=== PATIENT | male | born 1995 | race Caucasian/White ===

== ENCOUNTER 2023-11-28 23:44 | Emergency (ER) | payer BC, OTHER ==
--- OUTSIDE RECORDS SUMMARY | 2023-11-28 23:49 | XMS REPORT | Continuity of Care Document ---
Author Name Unknown Address [address] [facility] [address] [place] [address] [facility] Address [address] [facility] [address] [place] [address] Care Team Providers Care Hide Handler Name Role Phone NETTA JOSE Primary Care Physician Unavailab CONNIE Roque Attending Clinician Unava DEVON Galvez Attending Clinician Unavailable Doctor Unassigned, [facility] Attending Clinician U VAL Young Attending Clinician Unavailable Ze Huff MD Attending Clinician [phone] Val Hand MD Attending Clinician [phone] Da DEAL, Sendroberto K.[facility]. Attending Clinician + [phone] KENNEDY RIVERA Attending Clinician Unavailable Kennedy Rivera DO Attending Clinician [phone] HEATHER DAVIS K.H. Attending Clinician UnavailMitch Stockton Attending Clinician [phone] MITCH BRUNNER Attending Clinician Unavailabl e Unknown, Attending Attending Clinician Unavailab OSCAR Cheng Attending Clinician Unavailable Travis Barajas PTA Attending Clinician UnavailOscar Ocampo MD Attending Clinician [phone] Nancy Barajas PTA Attending Clinician Unavail able Hola Oliveira MD Attending Clinician [phone] Ghislaine Griffin PT Attending Clinician Un available Sanjuanita Buckner PTA Attending Clinician Unavail able Brenda Solomon PT Attending Clinician Unavailab HOLA Tinajero Attending Clinician UnavailMILADIS Lobo Attending Clinician Unavailable Miladis Rodarte PA-C Attending Clinician YUNIEL LY Attending Clinician Unavailable Yuniel Ly MD Attending Clinician [phone] Only, Pcp [address] Test Attending Clinician Lorena Lazara Landis MD Attending Clinician LAZARA JEONG Attending Clinician Unavailable RENAE FORMAN Attending Clinician Unavailable CONNIE PHILLIPS Admitting Clinician Unava ilable KENNEDY RIVERA Admitting Clinician Unavailable HEATHER DAVISHTony Admitting Clinician Unavaila RENAE Zamarripa Admitting Clinician Unavailable Payers Payer Name Policy Type Policy Number Effective Date Expirati on Date Source [facility] [id number] 2019 00:00:00 [facility] [id number] 00:00:00 Problems Condition Name Condition Details Condition Category Status Onset Date Resolution Date Last Treatment Date Treating Clinician Comments Source Dysphagia, oropharyng eal phase Dysphagia, oropharyng eal phase Disease Active 11-10 00:00: 00 [facility] Abnormal barium swallow Abnormal barium swallow Disease Active 11-10 00:00: 00 [facility] Allergies, Adverse Reactions, Alerts Allergy Name Allergy Type Status Severity Reaction(s) Onset Date Inactive Date Treating Clinician Comments Source NO KNOWN ALLERGIE S Drug Class Active [facility] Social History Social Habit Start Date Stop Date Quantity Comments Source [facility] Alcohol Std Drinks [facility] History SDOH Alcohol Binge [facility] History SDOH Alcohol Comment [facility] Alcohol intake 2023-11-10 00:00:00 2023-11-10 00:00:00 Lifetime non-drinker (finding) [facility] Exposure to SARS-CoV-2 (event) 2023-03-01 00:00:00 2023-03-11 13:06:00 Not sure [facility] Tobacco use and exposure 2022-12-31 00:00:00 2022-12-31 00:00:00 Smokeless tobacco non-user [facility] History of Social function 2020-01-30 00:00:00 2020-01-30 00:00:00 [facility] History SDOH Alcohol Frequency 2020-01-29 00:00:00 2020-01-29 00:00:00 1 [facility] Sex Assigned At 1995 00:00:00 1995 00:00:00 [facility] Smoking Status Start Date Stop Date Source Never smoked tobacco [facility] Medications Ordered Medication Name Filled Medication Name Start Date Stop Date Current Medication? Ordering Clinician Indication Dosage Frequency Signature (SIG) Comments Components Source pantoprazol e 40 mg EC tablet 11-10 00:00: 00 Yes [id number] 40mg Take 1 tablet by mouth in the morning. [facility] pantoprazol e 40 mg EC tablet 11-10 00:00: 00 Yes [id number] 40mg Take 1 tablet by mouth in the morning. [facility] pantoprazol e 40 mg EC tablet 11-10 00:00: 00 Yes [id number] 40mg Take 1 tablet by mouth in the morning. [facility] pantoprazol e 40 mg EC tablet 11-10 00:00: 00 Yes [id number] 40mg Take 1 tablet by mouth in the morning. [facility] pantoprazol e 40 mg EC tablet 11-10 00:00: 00 Yes [id number] 40mg Take 1 tablet by mouth in the morning. [facility] barium sulfate (E-Z-HD BARIUM) 98 % oral suspension 50 mL 2022-10 16:30: 00 09-19 16:26 :00 No [id number] 50mL 50 mL, Oral, ONCE, 1 dose, On Tue09/19/23 at 1030, Routine [facility] barium sulfate (LIQUID E-Z PAQUE) 60 % (w/v) oral suspension 70 mL 2022-10 16:30: 00 09-19 16:26 :00 No [id number] 70mL 70 mL, Oral, ONCE, 1 dose, On Tue09/19/23 at 1030, Routine [facility] sulfur hexafluorid e microsphr (LUMASON) injection 5 mL 2022-10 21:45: 00 09-12 21:35 :00 No [id number] 5mL 5 mL, Intravenou s, ONCE, 1 dose, On Tue09/12/23 at 1600, Routine
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 [facility] ondansetron 4 mg disintegrat ing tablet 2022-10 00:00: 00 Yes [id number] 4mg Take 1 tablet by mouth every 8 (eight) hours as needed for Nausea and Vomiting (N/V). [facility] ondansetron 4 mg disintegrat ing tablet 2022-10 00:00: 00 Yes [id number] 4mg Take 1 tablet by mouth every 8 (eight) hours as needed for Nausea and Vomiting (N/V). [facility] ondansetron 4 mg disintegrat ing tablet 2022-10 00:00: 00 Yes [id number] 4mg Take 1 tablet by mouth every 8 (eight) hours as needed for Nausea and Vomiting (N/V). [facility] ondansetron 4 mg disintegrat ing tablet 2022-10 00:00: 00 Yes [id number] 4mg Take 1 tablet by mouth every 8 (eight) hours as needed for Nausea and Vomiting (N/V). [facility] ondansetron 4 mg disintegrat ing tablet 2022-10 00:00: 00 Yes [id number] 4mg Take 1 tablet by mouth every 8 (eight) hours as needed for Nausea and Vomiting (N/V). [facility] ondansetron 4 mg disintegrat ing tablet 2022-10 00:00: 00 Yes [id number] 4mg Take 1 tablet by mouth every 8 (eight) hours as needed for Nausea and Vomiting (N/V). [facility] ondansetron 4 mg disintegrat ing tablet 2022-10 0 00:00: 00 Yes [id number] 4mg Take 1 tablet by mouth every 8 (eight) hours as needed for Nausea and Vomiting (N/V). [facility] ondansetron 4 mg disintegrat ing tablet 2022-10 0 00:00: 00 Yes [id number] 4mg Take 1 tablet by mouth every 8 (eight) hours as needed for Nausea and Vomiting (N/V). [facility] ondansetron 4 mg disintegrat ing tablet 2022-10 0 00:00: 00 Yes [id number] 4mg Take 1 tablet by mouth every 8 (eight) hours as needed for Nausea and Vomiting (N/V). [facility] ondansetron 4 mg disintegrat ing tablet 2022-10 00:00: 00 Yes [id number] 4mg Take 1 tablet by mouth every 8 (eight) hours as needed for Nausea and Vomiting (N/V). [facility] ondansetron 4 mg disintegrat ing tablet 2022-10 00:00: 00 Yes [id number] 4mg Take 1 tablet by mouth every 8 (eight) hours as needed for Nausea and Vomiting (N/V). [facility] ondansetron 4 mg disintegrat ing tablet 2022-10 0 00:00: 00 Yes [id number] 4mg Take 1 tablet by mouth every 8 (eight) hours as needed for Nausea and Vomiting (N/V). [facility] ondansetron 4 mg disintegrat ing tablet 2022-10 0 00:00: 00 Yes [id number] 4mg Take 1 tablet by mouth every 8 (eight) hours as needed for Nausea and Vomiting (N/V). [facility] ondansetron 4 mg disintegrat ing tablet 2022-10 0 00:00: 00 Yes [id number] 4mg Take 1 tablet by mouth every 8 (eight) hours as needed for Nausea and Vomiting (N/V). [facility] ondansetron 4 mg disintegrat ing tablet 2022-10 00:00: 00 Yes [id number] 4mg Take 1 tablet by mouth every 8 (eight) hours as needed for Nausea and Vomiting (N/V). [facility] cholecalcif aarti, vitamin D3, (VITAMIN D3) 25 mcg (1,000 unit) tablet 2022-10 12:40: 05 Yes 1000U Take 1 tablet by mouth in the morning. [facility] cholecalcif aarti, vitamin D3, (VITAMIN D3) 25 mcg (1,000 unit) tablet 2022-10 12:40: 05 Yes 1000U Take 1 tablet by mouth in the morning. [facility] cholecalcif aarti, vitamin D3, (VITAMIN D3) 25 mcg (1,000 unit) tablet 2022-10 12:40: 05 Yes 1000U Take 1 tablet by mouth in the morning. [facility] cholecalcif aarti, vitamin D3, (VITAMIN D3) 25 mcg (1,000 unit) tablet 2022-10 12:40: 05 Yes 1000U Take 1 tablet by mouth in the morning. [facility] cholecalcif aarti, vitamin D3, (VITAMIN D3) 25 mcg (1,000 unit) tablet 2022-10 12:40: 05 Yes 1000U Take 1 tablet by mouth in the morning. [facility] cholecalcif aarti, vitamin D3, (VITAMIN D3) 25 mcg (1,000 unit) tablet 2022-10 12:40: 05 Yes 1000U Take 1 tablet by mouth in the morning. [facility] cholecalcif aarti, vitamin D3, (VITAMIN D3) 25 mcg (1,000 unit) tablet 2022-10 12:40: 05 Yes 1000U Take 1 tablet by mouth in the morning. [facility] cholecalcif aarti, vitamin D3, (VITAMIN D3) 25 mcg (1,000 unit) tablet 2022-10 12:40: 05 Yes 1000U Take 1 tablet by mouth in the morning. [facility] cholecalcif aarti, vitamin D3, (VITAMIN D3) 25 mcg (1,000 unit) tablet 2022-10 12:40: 05 Yes 1000U Take 1 tablet by mouth in the morning. [facility] cholecalcif aarti, vitamin D3, (VITAMIN D3) 25 mcg (1,000 unit) tablet 2022-10 12:40: 05 Yes 1000U Take 1 tablet by mouth in the morning. [facility] cholecalcif aarti, vitamin D3, (VITAMIN D3) 25 mcg (1,000 unit) tablet 2022-10 12:40: 05 Yes 1000U Take 1 tablet by mouth in the morning. [facility] cholecalcif aarti, vitamin D3, (VITAMIN D3) 25 mcg (1,000 unit) tablet 2022-10 12:40: 05 Yes 1000U Take 1 tablet by mouth in the morning. [facility] cholecalcif aarti, vitamin D3, (VITAMIN D3) 25 mcg (1,000 unit) tablet 2022-10 12:40: 05 Yes 1000U Take 1 tablet by mouth in the morning. [facility] cholecalcif aarti, vitamin D3, (VITAMIN D3) 25 mcg (1,000 unit) tablet 2022-10 12:40: 05 Yes 1000U Take 1 tablet by mouth in the morning. [facility] cholecalcif aarti, vitamin D3, (VITAMIN D3) 25 mcg (1,000 unit) tablet 2022-10 12:40: 05 Yes 1000U Take 1 tablet by mouth in the morning. [facility] cholecalcif aarti, vitamin D3, (VITAMIN D3) 25 mcg (1,000 unit) tablet 2022-10 12:40: 05 Yes 1000U Take 1 tablet by mouth in the morning. [facility] cholecalcif aarti, vitamin D3, (VITAMIN D3) 25 mcg (1,000 unit) tablet 2022-10 12:40: 05 Yes 1000U Take 1 tablet by mouth in the morning. [facility] cholecalcif aarti, vitamin D3, (VITAMIN D3) 25 mcg (1,000 unit) tablet 2022-10 12:40: 05 Yes 1000U Take 1 tablet by mouth in the morning. [facility] lamoTRIgine (LAMICTAL) 150 mg tablet 2022-10 0-24 12:39: 43 Yes 150mg Take 1 tablet by mouth every morning. [facility] lamoTRIgine 200 mg tablet 2022-10 0-24 12:39: 43 Yes 200mg Take 1 tablet by mouth in the morning. [facility] lamoTRIgine (LAMICTAL) 150 mg tablet 2022-10 0-24 12:39: 43 Yes 150mg Take 1 tablet by mouth every morning. [facility] lamoTRIgine 200 mg tablet 2022-10 0-24 12:39: 43 Yes 200mg Take 1 tablet by mouth in the morning. [facility] lamoTRIgine (LAMICTAL) 150 mg tablet 2022-10 0-24 12:39: 43 Yes 150mg Take 1 tablet by mouth every morning. [facility] lamoTRIgine 200 mg tablet 2022-10 024 12:39: 43 Yes 200mg Take 1 tablet by mouth in the morning. [facility] lamoTRIgine (LAMICTAL) 150 mg tablet 2022-10 024 12:39: 43 Yes 150mg Take 1 tablet by mouth every morning. [facility] lamoTRIgine 200 mg tablet 2022-10 024 12:39: 43 Yes 200mg Take 1 tablet by mouth in the morning. [facility] lamoTRIgine (LAMICTAL) 150 mg tablet 2022-10 024 12:39: 43 Yes 150mg Take 1 tablet by mouth every morning. [facility] lamoTRIgine 200 mg tablet 2022-10 024 12:39: 43 Yes 200mg Take 1 tablet by mouth in the morning. [facility] lamoTRIgine (LAMICTAL) 150 mg tablet 2022-10 024 12:39: 43 Yes 150mg Take 1 tablet by mouth every morning. [facility] lamoTRIgine 200 mg tablet 2022-10 0-24 12:39: 43 Yes 200mg Take 1 tablet by mouth in the morning. [facility] lamoTRIgine (LAMICTAL) 150 mg tablet 2022-10 0-24 12:39: 43 Yes 150mg Take 1 tablet by mouth every morning. [facility] lamoTRIgine 200 mg tablet 2022-10 024 12:39: 43 Yes 200mg Take 1 tablet by mouth in the morning. [facility] lamoTRIgine (LAMICTAL) 150 mg tablet 2022-10 024 12:39: 43 Yes 150mg Take 1 tablet by mouth every morning. [facility] lamoTRIgine 200 mg tablet 2022-10 024 12:39: 43 Yes 200mg Take 1 tablet by mouth in the morning. [facility] lamoTRIgine (LAMICTAL) 150 mg tablet 2022-10 024 12:39: 43 Yes 150mg Take 1 tablet by mouth every morning. [facility] lamoTRIgine 200 mg tablet 2022-10 024 12:39: 43 Yes 200mg Take 1 tablet by mouth in the morning. [facility] lamoTRIgine (LAMICTAL) 150 mg tablet 2022-10 024 12:39: 43 Yes 150mg Take 1 tablet by mouth every morning. [facility] lamoTRIgine 200 mg tablet 2022-10 024 12:39: 43 Yes 200mg Take 1 tablet by mouth in the morning. [facility] lamoTRIgine (LAMICTAL) 150 mg tablet 2022-10 024 12:39: 43 Yes 150mg Take 1 tablet by mouth every morning. [facility] lamoTRIgine 200 mg tablet 2022-10 024 12:39: 43 Yes 200mg Take 1 tablet by mouth in the morning. [facility] lamoTRIgine (LAMICTAL) 150 mg tablet 2022-10 024 12:39: 43 Yes 150mg Take 1 tablet by mouth every morning. [facility] lamoTRIgine 200 mg tablet 2022-10 024 12:39: 43 Yes 200mg Take 1 tablet by mouth in the morning. [facility] lamoTRIgine (LAMICTAL) 150 mg tablet 2022-10 024 12:39: 43 Yes 150mg Take 1 tablet by mouth every morning. [facility] lamoTRIgine 200 mg tablet 2022-10 024 12:39: 43 Yes 200mg Take 1 tablet by mouth in the morning. [facility] lamoTRIgine (LAMICTAL) 150 mg tablet 2022-10 024 12:39: 43 Yes 150mg Take 1 tablet by mouth every morning. [facility] lamoTRIgine 200 mg tablet 2022-10 024 12:39: 43 Yes 200mg Take 1 tablet by mouth in the morning. [facility] lamoTRIgine (LAMICTAL) 150 mg tablet 2022-10 024 12:39: 43 Yes 150mg Take 1 tablet by mouth every morning. [facility] lamoTRIgine 200 mg tablet 2022-10 0 12:39: 43 Yes 200mg Take 1 tablet by mouth in the morning. [facility] lamoTRIgine (LAMICTAL) 150 mg tablet 2022-10 0 12:39: 43 Yes 150mg Take 1 tablet by mouth every morning. [facility] lamoTRIgine 200 mg tablet 2022-10 024 12:39: 43 Yes 200mg Take 1 tablet by mouth in the morning. [facility] lamoTRIgine (LAMICTAL) 150 mg tablet 2022-10 024 12:39: 43 Yes 150mg Take 1 tablet by mouth every morning. [facility] lamoTRIgine 200 mg tablet 2022-10 024 12:39: 43 Yes 200mg Take 1 tablet by mouth in the morning. [facility] lamoTRIgine (LAMICTAL) 150 mg tablet 2022-10 024 12:39: 43 Yes 150mg Take 1 tablet by mouth every morning. [facility] lamoTRIgine 200 mg tablet 2022-10 024 12:39: 43 Yes 200mg Take 1 tablet by mouth in the morning. [facility] levothyroxi ne 50 mcg tablet 4-20 19:12: 48 Yes 50ug Take 1 tablet by mouth every morning. [facility] lamoTRIgine 100 mg tablet 2023-0 4-20 19:12: 48 Yes 250mg Take 2.5 tablets by mouth in the morning and 2.5 tablets in the evening. [facility] levothyroxi ne 50 mcg tablet 3-0 4-20 19:12: 48 Yes 50ug Take 1 tablet by mouth every morning. [facility] lamoTRIgine 100 mg tablet 2023-0 4-20 19:12: 48 Yes 250mg Take 2.5 tablets by mouth in the morning and 2.5 tablets in the evening. [facility] levothyroxi ne 50 mcg tablet 3-0 4-20 19:12: 48 Yes 50ug Take 1 tablet by mouth every morning. [facility] lamoTRIgine 100 mg tablet 3-0 4-20 19:12: 48 Yes 250mg Take 2.5 tablets by mouth in the morning and 2.5 tablets in the evening. [facility] levothyroxi ne 50 mcg tablet 3-0 -20 19:12: 48 Yes 50ug Take 1 tablet by mouth every morning. [facility] lamoTRIgine 100 mg tablet 3-0 4-20 19:12: 48 Yes 250mg Take 2.5 tablets by mouth in the morning and 2.5 tablets in the evening. [facility] levothyroxi ne 50 mcg tablet 3-0 4-20 19:12: 48 Yes 50ug Take 1 tablet by mouth every morning. [facility] lamoTRIgine 100 mg tablet 3-0 4-20 19:12: 48 Yes 250mg Take 2.5 tablets by mouth in the morning and 2.5 tablets in the evening. [facility] levothyroxi ne 50 mcg tablet 3-0 4-20 19:12: 48 Yes 50ug Take 1 tablet by mouth every morning. [facility] lamoTRIgine 100 mg tablet 3-0 4-20 19:12: 48 Yes 250mg Take 2.5 tablets by mouth in the morning and 2.5 tablets in the evening. [facility] levothyroxi ne 50 mcg tablet 3-0 4-20 19:12: 48 Yes 50ug Take 1 tablet by mouth every morning. [facility] lamoTRIgine 100 mg tablet 3-0 4-20 19:12: 48 Yes 250mg Take 2.5 tablets by mouth in the morning and 2.5 tablets in the evening. [facility] levothyroxi ne 50 mcg tablet 3-0 4-20 19:12: 48 Yes 50ug Take 1 tablet by mouth every morning. [facility] lamoTRIgine 100 mg tablet 3-0 4-20 19:12: 48 Yes 250mg Take 2.5 tablets by mouth in the morning and 2.5 tablets in the evening. [facility] levothyroxi ne 50 mcg tablet 3-0 4-20 19:12: 48 Yes 50ug Take 1 tablet by mouth every morning. [facility] lamoTRIgine 100 mg tablet 3-0 4-20 19:12: 48 Yes 250mg Take 2.5 tablets by mouth in the morning and 2.5 tablets in the evening. [facility] levothyroxi ne 50 mcg tablet 3-0 -20 19:12: 48 Yes 50ug Take 1 tablet by mouth every morning. [facility] lamoTRIgine 100 mg tablet 3-0 4-20 19:12: 48 Yes 250mg Take 2.5 tablets by mouth in the morning and 2.5 tablets in the evening. [facility] levothyroxi ne 50 mcg tablet 3-0 -20 19:12: 48 Yes 50ug Take 1 tablet by mouth every morning. [facility] lamoTRIgine 100 mg tablet 3-0 -20 19:12: 48 Yes 250mg Take 2.5 tablets by mouth in the morning and 2.5 tablets in the evening. [facility] levothyroxi ne 50 mcg tablet 3-0 4-20 19:12: 48 Yes 50ug Take 1 tablet by mouth every morning. [facility] lamoTRIgine 100 mg tablet 2023-0 4-20 19:12: 48 Yes 250mg Take 2.5 tablets by mouth in the morning and 2.5 tablets in the evening. [facility] levothyroxi ne 50 mcg tablet 2023-0 4-20 19:12: 48 Yes 50ug Take 1 tablet by mouth every morning. [facility] lamoTRIgine 100 mg tablet 2022-0 -20 19:12: 48 Yes 250mg Take 2.5 tablets by mouth in the morning and 2.5 tablets in the evening. [facility] levothyroxi ne 50 mcg tablet 2022-0 -20 19:12: 48 Yes 50ug Take 1 tablet by mouth every morning. [facility] lamoTRIgine 100 mg tablet 2022-0 -20 19:12: 48 Yes 250mg Take 2.5 tablets by mouth in the morning and 2.5 tablets in the evening. [facility] levothyroxi ne 50 mcg tablet 2022-0 -20 19:12: 48 Yes 50ug Take 1 tablet by mouth every morning. [facility] lamoTRIgine 100 mg tablet 2022-0 -20 19:12: 48 Yes 250mg Take 2.5 tablets by mouth in the morning and 2.5 tablets in the evening. [facility] levothyroxi ne 50 mcg tablet 2022-0 20 19:12: 48 Yes 50ug Take 1 tablet by mouth every morning. [facility] lamoTRIgine 100 mg tablet 2022-0 20 19:12: 48 Yes 250mg Take 2.5 tablets by mouth in the morning and 2.5 tablets in the evening. [facility] levothyroxi ne 50 mcg tablet 2022-0 20 19:12: 48 Yes 50ug Take 1 tablet by mouth every morning. [facility] lamoTRIgine 100 mg tablet 2022-0 -20 19:12: 48 Yes 250mg Take 2.5 tablets by mouth in the morning and 2.5 tablets in the evening. [facility] levothyroxi ne 50 mcg tablet 2022-0 -20 19:12: 48 Yes 50ug Take 1 tablet by mouth every morning. [facility] levothyroxi ne 50 mcg tablet 2022-0 -20 19:12: 48 Yes 50ug Take 1 tablet by mouth every morning. [facility] levothyroxi ne 50 mcg tablet 2022-0 20 19:12: 48 Yes 50ug Take 1 tablet by mouth every morning. [facility] levothyroxi ne 50 mcg tablet 2022-0 20 19:12: 48 Yes 50ug Take 1 tablet by mouth every morning. [facility] levothyroxi ne 50 mcg tablet 2022-0 20 19:12: 48 Yes 50ug Take 1 tablet by mouth every morning. [facility] levothyroxi ne 50 mcg tablet 2022-0 20 19:12: 48 Yes 50ug Take 1 tablet by mouth every morning. [facility] levothyroxi ne 50 mcg tablet 0 02-03 19:12: 48 Yes 50ug Take 1 tablet by mouth every morning. [facility] levothyroxi ne 50 mcg tablet 0 02-03 19:12: 48 Yes 50ug Take 1 tablet by mouth every morning. [facility] levothyroxi ne 50 mcg tablet 0 02-03 19:12: 48 Yes 50ug Take 1 tablet by mouth every morning. [facility] levothyroxi ne 50 mcg tablet 2022-0 02-03 19:12: 48 Yes 50ug Take 1 tablet by mouth every morning. [facility] levothyroxi ne 50 mcg tablet 0 02-03 19:12: 48 Yes 50ug Take 1 tablet by mouth every morning. [facility] levothyroxi ne 50 mcg tablet 2022-0 20 19:12: 48 Yes 50ug Take 1 tablet by mouth every morning. [facility] levothyroxi ne 50 mcg tablet 2022-0 20 19:12: 48 Yes 50ug Take 1 tablet by mouth every morning. [facility] levothyroxi ne 50 mcg tablet 2022-0 20 19:12: 48 Yes 50ug Take 1 tablet by mouth every morning. [facility] levothyroxi ne 50 mcg tablet 2022-0 20 19:12: 48 Yes 50ug Take 1 tablet by mouth every morning. [facility] levothyroxi ne 50 mcg tablet 02-03 19:12: 48 Yes 50ug Take 1 tablet by mouth every morning. [facility] levothyroxi ne 50 mcg tablet 02-03 19:12: 48 Yes 50ug Take 1 tablet by mouth every morning. [facility] levothyroxi ne 50 mcg tablet 02-03 19:12: 48 Yes 50ug Take 1 tablet by mouth every morning. [facility] lamoTRIgine (LAMICTAL) 150 mg tablet 01-29 11:43: 43 Yes 150mg Take 150 mg by mouth every morning. [facility] lamoTRIgine (LAMICTAL) 100 mg tablet 01-29 11:43: 43 Yes 250mg Take 250 mg by mouth 2 (two) times daily. [facility] levothyroxi ne 50 mcg tablet 01-29 11:43: 43 Yes 50ug Take 50 mcg by mouth every morning. [facility] lamoTRIgine (LAMICTAL) 150 mg tablet 01-29 11:43: 43 Yes 150mg Take 150 mg by mouth every morning. [facility] lamoTRIgine (LAMICTAL) 100 mg tablet 01-29 11:43: 43 Yes 250mg Take 250 mg by mouth 2 (two) times daily. [facility] levothyroxi ne 50 mcg tablet 01-29 11:43: 43 Yes 50ug Take 50 mcg by mouth every morning. [facility] lamoTRIgine (LAMICTAL) 150 mg tablet 01-29 11:43: 43 Yes 150mg Take 150 mg by mouth every morning. [facility] lamoTRIgine (LAMICTAL) 100 mg tablet 01-29 11:43: 43 Yes 250mg Take 250 mg by mouth 2 (two) times daily. [facility] levothyroxi ne 50 mcg tablet 01-29 11:43: 43 Yes 50ug Take 50 mcg by mouth every morning. [facility] lamoTRIgine (LAMICTAL) 150 mg tablet 01-29 11:43: 43 Yes 150mg Take 150 mg by mouth every morning. [facility] lamoTRIgine (LAMICTAL) 100 mg tablet 01-29 11:43: 43 Yes 250mg Take 250 mg by mouth 2 (two) times daily. [facility] levothyroxi ne 50 mcg tablet 01-29 11:43: 43 Yes 50ug Take 50 mcg by mouth every morning. [facility] lamoTRIgine (LAMICTAL) 150 mg tablet 01-29 11:43: 43 Yes 150mg Take 150 mg by mouth every morning. [facility] lamoTRIgine (LAMICTAL) 100 mg tablet 01-29 11:43: 43 Yes 250mg Take 250 mg by mouth 2 (two) times daily. [facility] levothyroxi ne 50 mcg tablet 01-29 11:43: 43 Yes 50ug Take 50 mcg by mouth every morning. [facility] lamoTRIgine (LAMICTAL) 150 mg tablet 01-29 11:43: 43 Yes 150mg Take 150 mg by mouth every morning. [facility] lamoTRIgine (LAMICTAL) 100 mg tablet 01-29 11:43: 43 Yes 250mg Take 250 mg by mouth 2 (two) times daily. [facility] levothyroxi ne 50 mcg tablet 01-29 11:43: 43 Yes 50ug Take 50 mcg by mouth every morning. [facility] lamoTRIgine (LAMICTAL) 150 mg tablet 01-29 11:43: 43 Yes 150mg Take 150 mg by mouth every morning. [facility] lamoTRIgine (LAMICTAL) 100 mg tablet 01-29 11:43: 43 Yes 250mg Take 250 mg by mouth 2 (two) times daily. [facility] levothyroxi ne 50 mcg tablet 01-29 11:43: 43 Yes 50ug Take 50 mcg by mouth every morning. [facility] lamoTRIgine (LAMICTAL) 150 mg tablet 01-29 11:43: 43 Yes 150mg Take 150 mg by mouth every morning. [facility] lamoTRIgine (LAMICTAL) 100 mg tablet 01-29 11:43: 43 Yes 250mg Take 250 mg by mouth 2 (two) times daily. [facility] levothyroxi ne 50 mcg tablet 01-29 11:43: 43 Yes 50ug Take 50 mcg by mouth every morning. [facility] lamoTRIgine (LAMICTAL) 150 mg tablet 01-29 11:43: 43 Yes 150mg Take 150 mg by mouth every morning. [facility] lamoTRIgine (LAMICTAL) 100 mg tablet 01-29 11:43: 43 Yes 250mg Take 250 mg by mouth 2 (two) times daily. [facility] levothyroxi ne 50 mcg tablet 01-29 11:43: 43 Yes 50ug Take 50 mcg by mouth every morning. [facility] lamoTRIgine (LAMICTAL) 150 mg tablet 01-29 11:43: 43 Yes 150mg Take 150 mg by mouth every morning. [facility] lamoTRIgine (LAMICTAL) 100 mg tablet 01-29 11:43: 43 Yes 250mg Take 250 mg by mouth 2 (two) times daily. [facility] lamoTRIgine (LAMICTAL) 150 mg tablet 01-29 11:43: 43 Yes 150mg Take 150 mg by mouth every morning. [facility] lamoTRIgine (LAMICTAL) 150 mg tablet 01-29 11:43: 43 Yes 150mg Take 150 mg by mouth every morning. [facility] lamoTRIgine (LAMICTAL) 150 mg tablet 01-29 11:43: 43 Yes 150mg Take 150 mg by mouth every morning. [facility] lamoTRIgine (LAMICTAL) 150 mg tablet 01-29 11:43: 43 Yes 150mg Take 150 mg by mouth every morning. [facility] lamoTRIgine (LAMICTAL) 150 mg tablet 01-29 11:43: 43 Yes 150mg Take 150 mg by mouth every morning. [facility] lamoTRIgine (LAMICTAL) 150 mg tablet 0 415 11:43: 43 Yes 150mg Take 150 mg by mouth every morning. [facility] lamoTRIgine (LAMICTAL) 150 mg tablet 0 15 11:43: 43 Yes 150mg Take 150 mg by mouth every morning. [facility] lamoTRIgine (LAMICTAL) 150 mg tablet 0 15 11:43: 43 Yes 150mg Take 150 mg by mouth every morning. [facility] lamoTRIgine (LAMICTAL) 150 mg tablet 0 15 11:43: 43 Yes 150mg Take 150 mg by mouth every morning. [facility] lamoTRIgine (LAMICTAL) 150 mg tablet 15 11:43: 43 Yes 150mg Take 150 mg by mouth every morning. [facility] lamoTRIgine (LAMICTAL) 150 mg tablet 15 11:43: 43 Yes 150mg Take 150 mg by mouth every morning. [facility] lamoTRIgine (LAMICTAL) 150 mg tablet 0 15 11:43: 43 Yes 150mg Take 150 mg by mouth every morning. [facility] lamoTRIgine (LAMICTAL) 150 mg tablet 15 11:43: 43 Yes 150mg Take 150 mg by mouth every morning. [facility] lamoTRIgine (LAMICTAL) 150 mg tablet 15 11:43: 43 Yes 150mg Take 150 mg by mouth every morning. [facility] lamoTRIgine (LAMICTAL) 150 mg tablet 0 15 11:43: 43 Yes 150mg Take 150 mg by mouth every morning. [facility] lamoTRIgine (LAMICTAL) 150 mg tablet 15 11:43: 43 Yes 150mg Take 150 mg by mouth every morning. [facility] lamoTRIgine (LAMICTAL) 150 mg tablet 0 15 11:43: 43 Yes 150mg Take 150 mg by mouth every morning. [facility] levothyroxi ne 50 mcg tablet 2020-0 4-15 11:43: 43 Yes 50ug Take 50 mcg by mouth every morning. [facility] naproxen sodium 550 mg tablet 2019-0 2-16 00:00: 00 Yes [id number] 550mg Take 1 tablet by mouth 2 (two) times daily with meals. [facility] naproxen sodium 550 mg tablet 2019-0 2-16 00:00: 00 Yes [id number] 550mg Take 1 tablet by mouth 2 (two) times daily with meals. [facility] naproxen sodium 550 mg tablet 2019-0 2-16 00:00: 00 Yes [id number] 550mg Take 1 tablet by mouth 2 (two) times daily with meals. [facility] naproxen sodium 550 mg tablet 2019-0 2-16 00:00: 00 Yes [id number] 550mg Take 1 tablet by mouth 2 (two) times daily with meals. [facility] naproxen sodium 550 mg tablet 2019-0 2-16 00:00: 00 Yes [id number] 550mg Take 1 tablet by mouth 2 (two) times daily with meals. [facility] naproxen sodium 550 mg tablet 2019-0 2-16 00:00: 00 Yes [id number] 550mg Take 1 tablet by mouth 2 (two) times daily with meals. [facility] naproxen sodium 550 mg tablet 2019-0 2-16 00:00: 00 Yes [id number] 550mg Take 1 tablet by mouth 2 (two) times daily with meals. [facility] naproxen sodium 550 mg tablet 2019-0 2-16 00:00: 00 Yes [id number] 550mg Take 1 tablet by mouth 2 (two) times daily with meals. [facility] naproxen sodium 550 mg tablet 2019-0 2-16 00:00: 00 Yes [id number] 550mg Take 1 tablet by mouth 2 (two) times daily with meals. [facility] naproxen sodium 550 mg tablet 2019-0 2-16 00:00: 00 Yes [id number] 550mg Take 1 tablet by mouth 2 (two) times daily with meals. [facility] naproxen sodium 550 mg tablet 2020-0 2-16 00:00: 00 Yes [id number] 550mg Take 1 tablet by mouth 2 (two) times daily with meals. [facility] 2020-0 2-16 00:00: 00 Yes [id number] 550mg Take 1 tablet by mouth 2 (two) times daily with meals. [facility] 550 mg tablet 2020-0 2-16 00:00: 00 Yes [id number] 550mg Take 1 tablet by mouth 2 (two) times daily with meals. [facility] naproxen sodium 550 mg tablet 2020-0 2-16 00:00: 00 Yes [id number] 550mg Take 1 tablet by mouth 2 (two) times daily with meals. [facility] naproxen sodium 550 mg tablet 2020-0 2-16 00:00: 00 Yes [id number] 550mg Take 1 tablet by mouth 2 (two) times daily with meals. [facility] naproxen sodium 550 mg tablet 2020-0 2-16 00:00: 00 Yes [id number] 550mg Take 1 tablet by mouth 2 (two) times daily with meals. [facility] naproxen sodium 550 mg tablet 2020-0 2-16 00:00: 00 Yes [id number] 550mg Take 1 tablet by mouth 2 (two) times daily with meals. [facility] naproxen sodium 550 mg tablet 2020-0 2-16 00:00: 00 Yes [id number] 550mg Take 1 tablet by mouth 2 (two) times daily with meals. [facility] naproxen sodium 550 mg tablet 2020-0 2-16 00:00: 00 Yes [id number] 550mg Take 1 tablet by mouth 2 (two) times daily with meals. [facility] naproxen sodium 550 mg tablet 2020-0 2-16 00:00: 00 Yes [id number] 550mg Take 1 tablet by mouth 2 (two) times daily with meals. [facility] naproxen sodium 550 mg tablet 2020-0 2-16 00:00: 00 Yes [id number] 550mg Take 1 tablet by mouth 2 (two) times daily with meals. [facility] 550 mg tablet 2020-0 2-16 00:00: 00 Yes [id number] 550mg Take 1 tablet by mouth 2 (two) times daily with meals. [facility] sodium 550 mg tablet 2020-0 2-16 00:00: 00 Yes [id number] 550mg Take 1 tablet by mouth 2 (two) times daily with meals. [facility] naproxen sodium 550 mg tablet 2020-0 2-16 00:00: 00 Yes [id number] 550mg Take 1 tablet by mouth 2 (two) times daily with meals. [facility] naproxen sodium 550 mg tablet 2020-0 2-16 00:00: 00 Yes [id number] 550mg Take 1 tablet by mouth 2 (two) times daily with meals. [facility] naproxen sodium 550 mg tablet 2020-0 2-16 00:00: 00 Yes [id number] 550mg Take 1 tablet by mouth 2 (two) times daily with meals. [facility] naproxen sodium 550 mg tablet 2020-0 2-16 00:00: 00 Yes [id number] 550mg Take 1 tablet by mouth 2 (two) times daily with meals. [facility] naproxen sodium 550 mg tablet 2020-0 2-16 00:00: 00 Yes [id number] 550mg Take 1 tablet by mouth 2 (two) times daily with meals. [facility] naproxen sodium 550 mg tablet 2020-0 2-16 00:00: 00 Yes [id number] 550mg Take 1 tablet by mouth 2 (two) times daily with meals. [facility] naproxen sodium 550 mg tablet 2020-0 2-16 00:00: 00 Yes [id number] 550mg Take 1 tablet by mouth 2 (two) times daily with meals. [facility] naproxen sodium 550 mg tablet 2020-0 2-16 00:00: 00 Yes [id number] 550mg Take 1 tablet by mouth 2 (two) times daily with meals. [facility] naproxen sodium 550 mg tablet 2020-0 2-16 00:00: 00 Yes [id number] 550mg Take 1 tablet by mouth 2 (two) times daily with meals. [facility] naproxen sodium 550 mg tablet 2020-0 2-16 00:00: 00 Yes [id number] 550mg Take 1 tablet by mouth 2 (two) times daily with meals. [facility] naproxen sodium 550 mg tablet 2020-0 2-16 00:00: 00 Yes [id number] 550mg Take 1 tablet by mouth 2 (two) times daily with meals. [facility] naproxen sodium 550 mg tablet 2020-0 2-16 00:00: 00 Yes [id number] 550mg Take 1 tablet by mouth 2 (two) times daily with meals. [facility] naproxen sodium 550 mg tablet 2020-0 2-16 00:00: 00 Yes [id number] 550mg Take 1 tablet by mouth 2 (two) times daily with meals. [facility] naproxen sodium 550 mg tablet 2020-0 2-16 00:00: 00 Yes [id number] 550mg Take 1 tablet by mouth 2 (two) times daily with meals. [facility] naproxen sodium 550 mg tablet 2020-0 2-16 00:00: 00 Yes [id number] 550mg Take 1 tablet by mouth 2 (two) times daily with meals. [facility] naproxen sodium 550 mg tablet 2020-0 2-16 00:00: 00 Yes [id number] 550mg Take 1 tablet by mouth 2 (two) times daily with meals. [facility] naproxen sodium 550 mg tablet 2020-0 2-16 00:00: 00 Yes [id number] 550mg Take 1 tablet by mouth 2 (two) times daily with meals. [facility] naproxen sodium 550 mg tablet 2020-0 2-16 00:00: 00 Yes [id number] 550mg Take 1 tablet by mouth 2 (two) times daily with meals. [facility] naproxen sodium 550 mg tablet 2020-0 2-16 00:00: 00 Yes [id number] 550mg Take 1 tablet by mouth 2 (two) times daily with meals. [facility] naproxen sodium 550 mg tablet 2019-0 2-16 00:00: 00 Yes [id number] 550mg Take 1 tablet by mouth 2 (two) times daily with meals. [facility] naproxen sodium 550 mg tablet 2019-0 2-16 00:00: 00 Yes [id number] 550mg Take 1 tablet by mouth 2 (two) times daily with meals. [facility] naproxen sodium 550 mg tablet 2019-0 2-16 00:00: 00 Yes [id number] 550mg Take 1 tablet by mouth 2 (two) times daily with meals. [facility] Immunizations Ordered Immunization Name Filled Immunization Name Date Status Comments Source Influenza Virus Vaccine Quad IM, Preserv and ABX Free 6 MO-64 YRS (FLUCELVAX) Unknown Completed [facility] Influenza Virus Vaccine Quad IM, Preserv and ABX Free 6 MO-64 YRS (FLUCELVAX) Unknown Completed [facility] Influenza Virus Vaccine Quad IM, Preserv and ABX Free 6 MO-64 YRS (FLUCELVAX) Unknown Completed [facility] Influenza Virus Vaccine Quad IM, Preserv and ABX Free 6 MO-64 YRS (FLUCELVAX) Unknown Completed [facility] Influenza Virus Vaccine Quad IM, Preserv and ABX Free 6 MO-64 YRS (FLUCELVAX) Unknown Completed [facility] Influenza Virus Vaccine Quad IM, Preserv and ABX Free 6 MO-64 YRS (FLUCELVAX) Unknown Completed [facility] Influenza Virus Vaccine Quad IM, Preserv and ABX Free 6 MO-64 YRS (FLUCELVAX) Unknown Completed [facility] Influenza Virus Vaccine Quad IM, Preserv and ABX Free 6 MO-64 YRS (FLUCELVAX) Unknown Completed [facility] Influenza Virus Vaccine Quad IM, Preserv and ABX Free 6 MO-64 YRS (FLUCELVAX) Unknown Completed [facility] Influenza Virus Vaccine Quad IM, Preserv and ABX Free 6 MO-64 YRS (FLUCELVAX) Unknown Completed [facility] Influenza Virus Vaccine Quad IM, Preserv and ABX Free 6 MO-64 YRS (FLUCELVAX) Unknown Completed [facility] Influenza Virus Vaccine Quad IM, Preserv and ABX Free 6 MO-64 YRS (FLUCELVAX) Unknown Completed [facility] Influenza Virus Vaccine Quad IM, Preserv and ABX Free 6 MO-64 YRS (FLUCELVAX) Unknown Completed [facility] Influenza Virus Vaccine Quad IM, Preserv and ABX Free 6 MO-64 YRS (FLUCELVAX) Unknown Completed [facility] Influenza Virus Vaccine Quad IM, Preserv and ABX Free 6 MO-64 YRS (FLUCELVAX) Unknown Completed [facility] Influenza Virus Vaccine Quad IM, Preserv and ABX Free 6 MO-64 YRS (FLUCELVAX) Unknown Completed [facility] Influenza Virus Vaccine Quad IM, Preserv and ABX Free 6 MO-64 YRS (FLUCELVAX) Unknown Completed [facility] Influenza Virus Vaccine Quad IM, Preserv and ABX Free 6 MO-64 YRS (FLUCELVAX) Unknown Completed [facility] Vital Signs Vital Name Observation Time Observation Value Comments S ource Systolic blood pressure 2023-11-10 20:45:00 120 mm[Hg] [facility] Diastolic blood pressure 2023-11-10 20:45:00 73 mm[Hg] [facility] Heart rate 2023-11-10 20:45:00 75 /min [facility] Body temperature 2023-11-10 20:45:00 36.44 Negra [facility] Body height 2023-11-10 20:45:[address] [facility] Body weight 2023-11-10 20:45:[address] [facility] BMI 2023-11-10 20:45:00 29.38 kg/m2 [facility] Oxygen saturation in Arterial blood by Pulse oximetry 2023-11-10 20:45:00 97 /min [facility] Systolic blood pressure 2023-08-12 19:31:00 112 mm[Hg] [facility] Diastolic blood pressure 2023-08-12 19:31:00 70 mm[Hg] [facility] Heart rate 2023-08-12 19:31:00 71 /min [facility] Body temperature 2023-08-12 19:31:00 36.61 Negra [facility] Respiratory rate 2023-08-12 19:31:00 16 /min [facility] Body height 2023-08-12 19:31:00 167.6 cm [facility] Body weight 2023-08-12 19:31:00 84.868 kg [facility] BMI 2023-08-12 19:31:00 30.20 kg/m2 [facility] Oxygen saturation in Arterial blood by Pulse oximetry 2023-08-12 19:31:00 98 /min [facility] Systolic blood pressure 2023-08-09 17:45:00 117 mm[Hg] [facility] Diastolic blood pressure 2023-08-09 17:45:00 78 mm[Hg] [facility] Heart rate 2023-08-09 17:45:00 90 /min [facility] Body height 2023-08-09 17:45:00 167.6 cm [facility] Body weight 2023-08-09 17:45:00 85.866 kg [facility] BMI 2023-08-09 17:45:00 30.55 kg/m2 [facility] Oxygen saturation in Arterial blood by Pulse oximetry 2023-08-09 17:45:00 95 /min [facility] Systolic blood pressure 2023-02-07 18:18:00 122 mm[Hg] [facility] Diastolic blood pressure 2023-02-07 18:18:00 73 mm[Hg] [facility] Heart rate 2023-02-07 18:18:00 91 /min [facility] Body temperature 2023-02-07 18:18:00 36.22 Negra [facility] Body height 2023-02-07 18:18:00 167.6 cm [facility] Body weight 2023-02-07 18:18:00 85.957 kg [facility] BMI 2023-02-07 18:18:00 30.59 kg/m2 [facility] Systolic blood pressure 2023-02-04 00:12:00 122 mm[Hg] [facility] Diastolic blood pressure 2023-02-04 00:12:00 80 mm[Hg] [facility] Heart rate 2023-02-04 00:11:00 76 /min [facility] Body temperature 2023-02-04 00:11:00 36.94 Negra [facility] Respiratory rate 2023-02-04 00:11:00 16 /min [facility] Body weight 2023-02-04 00:11:00 84.414 kg [facility] BMI 2023-02-04 00:11:00 30.97 kg/m2 [facility] Oxygen saturation in Arterial blood by Pulse oximetry 2023-02-04 00:11:00 99 /min [facility] Systolic blood pressure 2023-01-24 15:26:00 110 mm[Hg] [facility] Diastolic blood pressure 2023-01-24 15:26:00 62 mm[Hg] [facility] Heart rate 2023-01-24 15:26:00 81 /min [facility] Body temperature 2023-01-24 15:26:00 36.22 Negra [facility] Body height 2023-01-24 15:26:00 165.1 cm [facility] Body weight 2023-01-24 15:26:00 85.367 kg [facility] BMI 2023-01-24 15:26:00 31.32 kg/m2 [facility] Systolic blood pressure 2022-12-31 18:47:00 130 mm[Hg] [facility] Diastolic blood pressure 2022-12-31 18:47:00 78 mm[Hg] [facility] Heart rate 2022-12-31 18:47:00 95 /min [facility] Body temperature 2022-12-31 18:47:00 36.78 Negra [facility] Body height 2022-12-31 18:47:[address] [facility] Body weight 2022-12-31 18:47:[address] [facility] BMI 2022-12-31 18:47:00 31.30 kg/m2 [facility] Procedures Procedure Date / Time Performed Performing Clinician Source DISCLOSURE AND CONSENT, MEDICAL AND SURGICAL PROCEDURES 2023-11-11 06:01:00 Doctor Unassigned, [facility] FL BARIUM SWALLOW ESOPHAGUS 2023-09-19 15:15:00 Kennedy Rivera [facility] TRANSTHORACIC ECHO (TTE) COMPLETE W/ CONTRAST 2023-09-12 21:53:33 Heather Davis [facility] INSURANCE CORRESPONDENCE 2023-08-17 05:01:00 Doc tor Unassigned, [facility] XR KUB 2023-08-12 20:50:14 Omaghomi, Omayemi [facility] POCT SARS-COV-2 ANTIGEN (BINAX NOW) 2023-08-12 19:56:00 Neil Quinones [facility] POCT MOLECULAR FLU 2023-08-12 19:38:00 Unknown, Attend ing [facility] POCT MOLECULAR STREP 2023-08-12 19:35:00 Unknown, Atte arcenio [facility] FLU VACC ([id number]), 6 MO-64 YRS, .5ML, IM, QUAD (FLUCELVAX) 2023-08-09 17:47:06 Heather Davis [facility] HB ECG ROUTINE & RHYTHM STRIP 2023-08-09 17:42:18 Heather Davis [facility] XR KNEE 3 VW RIGHT 2023-02-04 00:35:00 Miladis Rodarte [facility] ASSIGNMENT OF BENEFITS 2023-01-24 15:20:15 Docto r Unassigned, [facility] DISCLOSURE AND CONSENT, MEDICAL AND SURGICAL PROCEDURES 2022-12-31 05:01:00 Doctor Unassigned, [facility] Encounters Start Date/Time End Date/Time Encounter Type Admission Type Attending Clinicians Care Facility Care Department Encounter ID Source 2021-08-13 17:58:08 Outpatient U CONNIE PHILLIPS [facility] [id number] [facility] 2023-11-11 00:00:00 2023-11-11 00:00:00 Orders Only Doctor Unassigned[facility] 1.20.114 350.1.13.10 4.2.7.2.686 [id number] [facility] 2023-11-10 15:00:00 2023-11-10 15:36:14 Outpatient R ALLEGRA [facility] [id number] [facility] 2023-11-10 15:00:00 2023-11-10 15:36:14 Office Visit Ze Huff [facility] 1..114 350.1.13.10 4.2.7.2.686 [id number] [facility] 2023-10-04 00:00:00 2023-10-04 00:00:00 Telephone Heather Davis [facility] 1..114 350.1.13.10 4.2.7.2.686 [id number] [facility] 2023-09-19 08:30:37 2023-09-19 23:59:00 Outpatient R KENNEDY RIVERA [facility] [id number] [facility] 2023-09-19 08:30:37 2023-09-19 23:59:00 Hospital Encounter Kennedy Rivera [facility] 1..114 350.1.13.10 4.2.7.2.686 [id number] [facility] 2023-09-16 00:00:00 2023-09-16 00:00:00 Patient Secure Msg Doctor Unassigned, [facility] 1.2.114 350.1.13.10 4.2.7.2.686 [id number] [facility] 2023-09-14 16:11:00 2023-09-14 23:59:00 Hospital Encounter Kennedy Rivera [facility] 1.2840.114 350.1.13.10 4.2.7.2.686 [id number] [facility] 2023-09-14 15:45:00 2023-09-14 16:10:00 Outpatient R KENNEDY RIVERA [facility] [id number] [facility] 2023-09-14 15:45:00 2023-09-14 16:10:00 Hospital Encounter Kennedy Rivera [facility] 1.2840.114 350.1.13.10 4.2.7.2.686 [id number] [facility] 2023-09-12 14:59:24 2023-09-12 23:59:00 Outpatient R HEATHER DAVIS [facility] [id number] [facility] 2023-09-12 14:59:24 2023-09-12 23:59:00 Hospital Encounter Heather Davis [facility] 1.284.114 350.1.13.10 4.2.7.2.686 [id number] [facility] 2023-08-23 14:00:00 2023-08-23 14:00:00 Outpatient R HEATHER DAVIS [facility] [id number] [facility] 2023-08-17 00:00:00 2023-08-17 00:00:00 Orders Only Doctor Unassigned, [facility] 1.840.114 350.1.13.10 4.2.7.2.686 [id number] [facility] 2023-08-16 14:13:47 2023-08-16 23:59:00 Outpatient R CYNTHIA DAVISROBERTO [facility] [id number] [facility] 2023-08-16 14:13:47 2023-08-16 23:59:00 Hospital Encounter Heather Davis [facility] [id number] 350.1.13.10 4.2.7.2.686 [id number] [facility] 2023-08-13 00:00:00 2023-08-13 00:00:00 Telephone Mitch Brunner [facility] [id number] 350.1.13.10 4.2.7.2.686 [id number] [facility] 2023-08-12 15:02:24 2023-08-12 23:59:00 Hospital Encounter Mitch Brunner [facility] [id number] 350.1.13.10 4.2.7.2.686 [id number] [facility] 2023-08-12 15:00:00 2023-08-12 15:14:14 Outpatient R MITCH BRUNNER [facility] [id number] [facility] 2023-08-12 15:00:00 2023-08-12 15:14:14 Urgent Care Mitch Brunner Unknown, Attending [facility] 1.2.840.114 350.1.13.10 4.2.7.2.686 [id number] [facility] 2023-08-09 13:00:00 2023-08-09 13:59:17 Outpatient R CYNTHIA DAVISROBERTO [facility] [id number] [facility] 2023-08-09 13:00:00 2023-08-09 13:59:17 Office Visit Heather Davis [facility] 1.2.840.114 350.1.13.10 4.2.7.2.686 [id number] [facility] 2023-03-11 13:20:00 2023-03-11 13:20:00 Outpatient OSCAR AVILES [facility] [id number] [facility] 2023-03-11 09:30:00 2023-03-11 09:30:00 Outpatient OSCAR AVILES [facility] [id number] [facility] 2023-03-10 16:00:00 2023-03-10 16:45:00 Ancillary Visit Travis Barajas William M [facility] 1.2.840.114 350.1.13.10 4.2.7.2.686 [id number] [facility] 2023-03-03 15:15:00 2023-03-03 16:00:00 Ancillary Visit Nancy Barajas Craig L [facility] 1.2.840.114 350.1.13.10 4.2.7.2.686 [id number] [facility] 2023-03-02 14:30:00 2023-03-02 15:22:44 Ancillary Visit Ghislaine Griffin Craig L [facility] N[facility] 1.2.840.114 350.1.13.10 4.2.7.2.686 [id number] [facility] 2023-02-25 16:00:00 2023-02-25 16:45:00 Ancillary Visit Sanjuanita Buckner William M [facility] 1.2.840.114 350.1.13.10 4.2.7.2.686 [id number] [facility] 2023-02-21 14:00:00 2023-02-21 15:17:27 Ancillary Visit Brenda Solomon William M [facility] 1.2.840.114 350.1.13.10 4.2.7.2.686 [id number] [facility] 2023-02-17 15:15:00 2023-02-17 16:29:11 Ancillary Visit Travis Barajas [facility] 1.2.840.114 350.1.13.10 4.2.7.2.686 [id number] [facility] 2023-02-16 15:15:00 2023-02-16 16:00:00 Ancillary Visit Travis Barajas William M [facility] 1.2.840.114 350.1.13.10 4.2.7.2.686 [id number] [facility] 2023-02-10 13:45:00 2023-02-10 14:30:00 Ancillary Visit Nancy Barajas [facility] 1.2.840.114 350.1.13.10 4.2.7.2.686 [id number] [facility] 2023-02-08 14:30:00 2023-02-08 15:15:00 Ancillary Visit Travis Barajas William M [facility] 1.2.840.114 350.1.13.10 4.2.7.2.686 [id number] [facility] 2023-02-07 13:10:00 2023-02-07 16:32:10 Outpatient R OSCAR SMITH [facility] [id number] [facility] 2023-02-07 13:10:00 2023-02-07 16:32:10 Office Visit Oscar Smith [facility] [place] 1.840.114 350.1.13.10 4.2.7.2.686 [id number] [facility] 2023-02-04 13:45:00 2023-02-04 13:45:00 Outpatient HOLA CAZARES [facility] [id number] [facility] 2023-02-03 19:26:14 2023-02-03 23:59:00 Outpatient R MILADIS RODARTE [facility] [id number] [facility] 2023-02-03 19:26:14 2023-02-03 23:59:00 Hospital En[facility] 1.840.114 350.1.13.10 4.2.7.2.686 [id number] [facility] 2023-02-03 19:40:00 2023-02-03 20:00:01 Urgent Care Miladis Rodarte Unknown, Attending [facility] 1.840.114 350.1.13.10 4.2.7.2.686 [id number] [facility] 2023-02-03 15:15:00 2023-02-03 16:11:47 Ancillary Visit Ghislaine Griffin [facility] 1.840.114 350.1.13.10 4.2.7.2.686 [id number] [facility] 2023-01-31 14:30:00 2023-01-31 15:12:42 Outpatient HOLA CAZARES [facility] [id number] [facility] 2023-01-31 14:30:00 2023-01-31 15:12:42 Ancillary Visit Ghislaine Griffin [facility] 1.840.114 350.1.13.10 4.2.7.2.686 [id number] [facility] 2023-01-28 00:00:00 2023-01-28 00:00:00 Patient Secure Msg Doctor Unassigned, [facility] 1.2840.114 350.1.13.10 4.2.7.2.686 [id number] [facility] 2023-01-24 10:30:00 2023-01-24 11:09:47 Outpatient R OSCAR SMITH [facility] [id number] [facility] 2023-01-24 10:30:00 2023-01-24 11:09:47 Office Visit Oscar Smith [facility] 1.840.114 350.1.13.10 4.2.7.2.686 [id number] [facility] 2023-01-24 00:00:00 2023-01-24 00:00:00 Orders Only Doctor Unassigned, [facility] 1.2840.114 350.1.13.10 4.2.7.2.686 [id number] [facility] 2022-12-31 14:02:03 2022-12-31 23:59:00 Outpatient R YUNIEL LY [facility] [id number] [facility] 2022-12-31 13:55:00 2022-12-31 23:59:00 Hospital Encounter Yuniel Ly [facility] 1.840.114 350.1.13.10 4.2.7.2.686 [id number] [facility] 2022-12-31 13:50:00 2022-12-31 16:20:45 Office Visit Yuniel Ly [facility] 1.840.114 350.1.13.10 4.2.7.2.686 [id number] [facility] 2021-10-15 12:45:00 2021-10-15 13:00:00 Laboratory Only Only, P[address] Test Andre Jeongip Pinky [facility] 1.2.840.114 350.1.13.10 4.2.7.2.686 [id number] [facility] 2021-10-15 12:45:00 2021-10-15 12:45:00 Outpatient R LAZARA JEONG [facility] [id number] [facility] 2020-06-03 13:04:29 2020-06-17 15:30:24 [facility] 1.2.840.114 350.1.13.10 4.2.7.2.686 [id number] 2020-05-19 14:20:00 2020-05-19 14:20:00 Outpatient R CONNIE PHILLIPS [facility] [id number] [facility] 2020-04-16 11:20:00 2020-04-16 11:20:00 Outpatient R [facility] [id number] [facility] 2020-03-18 09:00:00 2020-03-18 09:00:00 Outpatient R HOLA OLIVEIRA [facility] [id number] [facility] 2020-01-29 12:15:00 2020-01-29 12:15:00 Outpatient R CONNIE PHILLIPS [facility] [id number] [facility] 2019-12-01 23:48:46 2019-12-02 01:52:00 Emergency X RENAE FORMAN [facility] ERT [id number] [facility] Results Test Description Test Time Test Comments Results Result Co mments [facility] (BINAX NOW)2023-08-12 19:59:00* Test Item Value Reference Range Interpretation Comme nts POCT SARS-COV-2 ANTIGEN (test code = 09251-9) Not Detected Not Detected On board controls acceptable with C Line (test code = 3574) Yes KARL (test code = KARL) accurate developme nt and interpretation of all internal controls Lab Interpretation (test code = 40344-2) Normal [facility] MOLECULAR [id number] 19:50:38* Test Item Value Reference Range Interpretation Comme nts POCT Molecular FluA (test co de = 43875-6) Negative Negative POCT Molecular FluB (test co de = 67594-4) Negative Negative Lab Interpretation (test cod e = 62204-9) [facility] MOLECULAR [id number] 19:43:27* Test Item Value Reference Range Interpretation Comme nts POCT Molecular Strep (test c ode = 21585-2) Negative Negative Lab Interpretation (test cod e = 52530-3) [facility]
[2023-11-29] MEDS ORDERED: NA CHLORIDE 0.9% 1,000 ML ONE (00:41)
[2023-11-29] MEDS ORDERED: FAMOTIDINE 20 MG/2 ML VIAL IV ONE (00:41)
[2023-11-29] MEDS ORDERED: METOCLOPRAMIDE 10 MG/2mL INJ ONE (00:41)
[2023-11-29] MEDS ORDERED: PANTOPRAZOLE 40 MG INJ ONE (00:41)
[2023-11-29 00:55] LABS: Protime INR 0.93
[2023-11-29 00:56] LABS: Specific Gravity 1.006 (1.005-1.030); Urine Bilirubin NEGATIVE (Negative); Urine Blood Negative (Negative); Urine Clarity Clear (Clear); Urine Color Colorless (Yellow); Urine Glucose NEGATIVE (Negative); Urine Protein NEGATIVE (Negative); Urine Urobilinogen Normal (Normal)
[2023-11-29 01:01] LABS: Absolute Lymphocytes (CBC) 1.6 K/uL (0.7-4.9); Lymphocytes % 35.1 % (15.3-44.8); MCV 91.4 fL (80-100); MPV 7.4 fL (7.6-11.3); Platelets 268 thou/uL (152-406); RBC Red Blood Cell Count 5.36 M/uL (4.33-5.43)
[2023-11-29 01:12] LABS: ALT/SGPT 34 U/L (16-61); AST/SGOT 19 U/L (15-37); Albumin 3.4 g/dL (3.4-5.0); Alkaline Phosphatase 54 U/L (45-117); BUN Blood Urea Nitrogen 14 mg/dL (7-18); Bicarbonate 31 mEq/L (21-32); Bilirubin Total 0.3 mg/dL (0.2-1.0); Glomerular Filtration Rate 61 ml/min (=/>90); Glucose Level 95 mg/dL (74-106); Magnesium 2.4 mg/dL (1.6-2.4); NT PRO-BNP 34 pg/mL (<125); Protein, Total 7.2 g/dL (6.4-8.2); Sodium Level 140 mEq/L (136-145); Troponin High Sensitivity 3.8 pg/mL (<58.9)
[2023-11-29 01:18] LABS: Bilirubin Direct < 0.1 mg/dL (0-0.2); Bilirubin Indirect, Calculated ND mg/dL (0.2-0.8)
--- NOTE | 2023-11-29 04:12 | EDPHYS ---
Physician Documentation [facility] Name: Patrick Mix Jr Age: 28 yrs Sex: Male : 1995 Arrival Date: 11/28/2023 Time: 23:44 Bed 16 Private MD: ED Physician Enrique Jordan HPI: 11/29 00:22 This 28 yrs old Male presents to ER via Ambulatory with complaints of Chest sp4 Pain, Dizziness. 22:15 28-year-old male with history of Down syndrome presents with acute onset of epigastric sp4 pain and also some chest pain also complaining of dizziness and episode of diaphoresis at home. Patient and his family just returned home from the cruise. . Historical: - Allergies: 00:05 No Known Allergies; tl4 - Immunization history:: Adult Immunizations unknown. - Social history:: Smoking status: Patient denies any tobacco usage or history of. - Family history:: not pertinent. ROS: 22:15 Constitutional: Negative for fever, chills, and weight loss, positive chest pain, sp4 positive epigastric pain, positive dizziness., Positive sweating 22:15 All other systems are negative, Exam: 04:00 ECG was reviewed by the Attending Physician. 00:00 sp4 22:15 Constitutional: This is a well developed, well nourished patient who is awake, alert, sp4 and in no acute distress. Positive stigmata of Down syndrome Head/Face: Normocephalic, atraumatic. Eyes: Pupils equal round and reactive to light, extra-ocular motions intact. Lids and lashes normal. Conjunctiva and sclera are not injected. Cornea within normal limits. Periorbital areas with no swelling, redness, or edema. ENT: Nares patent. No nasal discharge, no septal abnormalities noted. Tympanic membranes are normal and external auditory canals are clear. Oropharynx with no redness, swelling, or masses, exudates, or evidence of obstruction, uvula midline. Mucous membranes moist. Neck: Trachea midline, no thyromegaly or masses palpated, and no cervical lymphadenopathy. Supple, full range of motion without nuchal rigidity, or vertebral point tenderness. Chest/axilla: Normal chest wall appearance and motion. Nontender with no deformity. No lesions are appreciated. Cardiovascular: Regular rate and rhythm with a normal S1 and S2. No gallops, murmurs, or rubs. Normal PMI, no JVD. No pulse deficits. Respiratory: Lungs have equal breath sounds bilaterally, clear to auscultation and percussion. No rales, rhonchi or wheezes noted. No increased work of breathing, no retractions or nasal flaring. Abdomen/GI: Soft, non-tender, with normal bowel sounds. No distension or tympany. No guarding or rebound. No evidence of tenderness throughout. Back: No spinal tenderness. No costovertebral tenderness. Male : Normal genitalia with no discharge or lesions. No hernias, no lymphadenopathy, normal circumcised male Skin: Warm, dry with normal turgor. Normal color with no rashes, no lesions, and no evidence of cellulitis. MS/ Extremity: Pulses equal, no cyanosis. Neurovascular intact. Full, normal range of motion. Neuro: Awake and alert, GCS 15, oriented to person, place, time, and situation. Cranial nerves II-XII grossly intact. Motor strength 5/5 in all extremities. Sensory grossly intact. Psych: Awake, alert, with orientation to person, exam limited secondary to old mental delay Vital Signs: 11/28 23:58 BP 132 / 79; Pulse 66; Resp 18; Temp 97.5(TE); Pulse Ox 100% on R/A; Weight 81.65 kg; tl4 Height 5 ft. 6 in. ; 11/29 00:30 BP 128 / 82; Pulse 64; Resp 16; Pulse Ox 96% on R/A; km8 01:00 BP 111 / 72; Pulse 61; Resp 16; Pulse Ox 94% on R/A; km8 01:30 BP 109 / 71; Pulse 62; Resp 16; Pulse Ox 94% on R/A; km8 02:08 BP 119 / 75; Pulse 62; Resp 16; Pulse Ox 98% on R/A; km8 02:30 BP 117 / 78; Pulse 69; Resp 16; Pulse Ox 98% on R/A; km8 03:00 BP 104 / 70; Pulse 64; Resp 16; Pulse Ox 95% on R/A; 8 03:30 BP 101 / 73; Pulse 57; Resp 16; Pulse Ox 95% on R/A; 11/28 23:58 Body Mass Index 29.05 (81.65 kg, 167.64 cm) tl4 MDM: 00:22 Patient medically screened. sp4 03:59 ED course: CT - Pelvis: Small bowel:No significant distention. Appendix:Within normal sp4 limits Colon:No distention or acute pericolonic edema. Moderate stool burden. Peritoneum: No free intraperitoneal fluid or air. Bones: No acute bone findings. Bladder: Unremarkable. Reproductive organs: No acute findings. Note that evaluation of the bowel and solid organs is somewhat limited due to lack of intravenous and oral contrast. IMPRESSION: 1. No acute thoracic or abdominopelvic findings. 2. Mild cardiomegaly. 3. Moderate stool burden. ED course: EXAM DESCRIPTION: Head Brain Wo Cont 11/29/2023 2:58 AM [employer] CLINICAL HISTORY: 28 years, Male, dizzy COMPARISON: None FINDINGS: Multiple transaxial tomograms of the brain were obtained from the base of the skull to the vertex without contrast. An individualized dose optimization technique, Automated Exposure Control, was utilized for the performed procedure. Brain parenchyma as well as the finley and white matter differentiation demonstrate to be unremarkable. Minimal punctate calcifications bilateral basal ganglia. There is no evidence for acute intraparenchymal hemorrhage. There is no midline shift and/or mass effect. No focal areas of hypodensities. Lateral ventricles and cisterns displace normal appearance. No intra or extra axial fluid collections were seen. The calvarium demonstrate to be intact with no evidence for acute bony injuries. The visualized portions of the paranasal sinuses and orbits demonstrate to be clear. IMPRESSION: No evidence for acute intraparenchymal hemorrhage. Unremarkable CT scan of the head without contrast. . 04:00 ED course: EXAM DESCRIPTION: Chest Single View CLINICAL HISTORY: 28 years Male CHEST sp4 PAIN TECHNIQUE: One view of the chest. COMPARISON: No prior exams provided for comparison. FINDINGS: The lungs are clear without focal consolidation, effusion, or pneumothorax. The cardiomediastinal silhouette and central pulmonary vasculature are normal. No acute osseous abnormalities. IMPRESSION: No acute cardiopulmonary abnormalities. 22:15 Differential diagnosis: acute pericarditis, anxiety, coronary artery disease chest wall sp4 pain, congestive heart failure cholecystitis, Cholelithiasis costochondritis. HEART Score: History: Slightly Suspicious (0), ECG: Normal (0), Age: < or = 45 years (0), Risk Factors: No Risk Factors Known (0), Troponin: < or = 1 x Normal Limit (0), Total Score = 0. Data reviewed: vital signs, nurses notes, old medical records, lab test result(s), EKG, radiologic studies, CT scan, plain films. ED course: Exam today is basically unremarkable. CT abdomen pelvis has revealed no problems in the chest abdomen or pelvis. There is however mild cardiomegaly, no acute thoracic or abdominal pelvic findings, moderate stool burden, CT head unremarkable, chest x-ray is unremarkable. Labs unremarkable. Patient stable for discharge home with advised to continue home medicines including his pantoprazole 40 mg p.o. daily. 11/29 00:22 Order name: Basic Metabolic Panel; Complete Time: 03:30 11/29 00:22 Order name: CBC with Diff; Complete Time: 03:30 11/29 00:22 Order name: LFT's; Complete Time: 03:30 11/29 00:22 Order name: Magnesium; Complete Time: 03:30 11/29 00:22 Order name: NT PRO-BNP; Complete Time: 03:30 11/29 00:22 Order name: PT-INR; Complete Time: 03:30 11/29 00:22 Order name: Troponin HS; Complete Time: 03:30 11/29 00:24 Order name: Urinalysis w/ reflexes; Complete Time: 03:30 11/29 00:22 Order name: XRAY Chest (1 view) [facility] 11/29 00:33 Order name: CT Head Brain wo Cont [facility] 11/29 02:18 Order name: Chest Abd Pelvis Wo Con [facility] 11/29 00:22 Order name: EKG; Complete Time: 00:23 11/29 00:08 Order name: Cardiac monitoring; Complete Time: 00: 4 11/29 00:08 Order name: EKG - Nurse/Tech; Complete Time: 00:08 11/29 00:08 Order name: IV Saline Lock; Complete Time: 00:11/29 00:08 Order name: Labs collected and sent; Complete Time: 00: 4 11/29 00:08 Order name: O2 Per Protocol; Complete Time: : 4 11/29 00:08 Order name: O2 Sat Monitoring; Complete Time: 00:22 tl4 EC:00 Rate is 66 beats/min. Rhythm is regular, Normal Sinus Rhythm. QRS [place] is Normal. [place] sp4 interval is normal. QRS interval is normal. QT interval is normal. No Q waves. T waves are Normal. No ST changes noted. Clinical impression: Normal ECG. Interpreted by me. Reviewed by me. Administered Medications: 00:49 Drug: Pantoprazole IVP 40 mg IVP once Route: IVP; Site: left antecubital; [facility] 03:25 Follow up: Response: No adverse reaction 00:49 Drug: Famotidine IVP 20 mg IVP once; dilute with 10 mL 0.9% NaCl; give over 2 minutes 8 Route: IVP; Site: left antecubital; 03:25 Follow up: Response: No adverse reaction 00:49 Drug: NS 0.9% IV 1000 ml IV at 1 bolus Per protocol; 1000 mL bolus Route: IV; Rate: 1 km8 bolus; Site: left antecubital; 03:25 Follow up: IV Status: Completed infusion; IV Intake: 1000ml 00:49 Drug: metoCLOPramide IVP 10 mg IVP once; over 1 to 2 minutes Route: IVP; Site: left [facility] antecubital; 03:25 Follow up: Response: No adverse reaction 8 Disposition Summary: 11/29/23 04:11 Discharge Ordered Notes: Location: Home sp4 Problem: new sp4 Symptoms: have improved sp4 Condition: Stable sp4 Diagnosis - Epigastric pain sp4 - Chest pain, unspecified sp4 Followup: sp4 - With: Private Physician - When: 7 - 10 days - Reason: Recheck today's complaints Discharge Instructions: - Discharge Summary Sheet sp4 - Nonspecific Chest Pain, Adult, [id number] sp4 Forms: - Patient Portal Instructions sp4 Signatures: Dispatcher [employer] Enrique Hinojosa MD MD sp4 Farhana Olivo RN RN [id number] Peter Salmeron RN RN tl4 Corrections: (The following items were deleted from the chart) 02:18 00:33 Chest Abdomen Pelvis W Con+CT.RAD.BRZ ordered. EDMS EDMS
--- NOTE | 2023-11-29 04:12 | ER ---
Nurse's Notes [facility] Name: Patrick Mix Jr Age: 28 yrs Sex: Male : 1995 Arrival Date: 11/28/2023 Time: 23:44 Bed 16 Private MD: Diagnosis: Epigastric pain;Chest pain, unspecified Presentation: 11/28 23:58 Chief complaint: Parent and/or Guardian states: Mother reports pt called out for help tl4 after going to bed. Mother arrived to patient and he appeared dazed. Pt c/o non-radiating, non-reproducible midsternal chest pain, dizziness, and diaphoresis. Mother reports pt was restless, agitated. Pt has a history of GERD but mother reports this is different. Coronavirus screen: At this time, the client does not indicate any symptoms associated with coronavirus-19. Ebola Screen: No symptoms or risks identified at this time. Initial Sepsis Screen: Does the patient meet any 2 criteria? No. Patient's initial sepsis screen is negative. Does the patient have a suspected source of infection? No. Patient's initial sepsis screen is negative. Risk Assessment: Do you want to hurt yourself or someone else? Patient reports no desire to harm self or others. Onset of symptoms was November 28, 2023 at 23:15. 23:58 Method Of Arrival: Ambulatory tl4 23:58 Acuity: KAMILAH 3 tl4 Triage Assessment: 11/29 00:06 General: Appears uncomfortable, Behavior is cooperative. Pain: Complains of pain in tl4 chest. EENT: No deficits noted. No signs and/or symptoms were reported regarding the EENT system. Neuro: Reports dizziness. Cardiovascular: Reports chest pain, diaphoresis. Respiratory: No deficits noted. Denies cough, shortness of breath. GI: No deficits noted. No signs and/or symptoms were reported involving the gastrointestinal system. : No deficits noted. No signs and/or symptoms were reported regarding the genitourinary system. Derm: No deficits noted. No signs and/or symptoms reported regarding the dermatologic system. Historical: - Allergies: 00:05 No Known Allergies; tl4 - Immunization history:: Adult Immunizations unknown. - Social history:: Smoking status: Patient denies any tobacco usage or history of. - Family history:: not pertinent. Screenin:20 [facility] ED Fall Risk Assessment (Adult) History of falling in the last 3 months, km8 including since admission No falls in past 3 months (0 pts) Confusion or Disorientation No (0 pts) Intoxicated or Sedated No (0 pts) Impaired Gait No (0 pts) Mobility Assist Device Used No (0 pt) Altered Elimination No (0 pt) Score/Fall Risk Level 0 - 2 = Low Risk Oriented to surroundings, Maintained a safe environment, Educated pt \T\ family on fall prevention, incl call for assistance when getting out of bed, Assessed \T\ reinforced patient's understanding of fall precautions. Abuse screen: Denies threats or abuse. Denies injuries from another. Nutritional screening: No deficits noted. Tuberculosis screening: No symptoms or risk factors identified. Assessment: 00:20 General: Appears in no apparent distress. comfortable, Behavior is calm, cooperative, km8 appropriate for age. Pain: Complains of pain in epigastric area Pain does not radiate. Pain began suddenly, 1 hour ago. Unable to use pain scale. Does not appear to understand pain scale. Neuro: Level of Consciousness is awake, alert, obeys commands, Oriented to person, place, time, situation. Cardiovascular: Reports chest pain, Capillary refill < 3 seconds Patient's skin is warm and dry. Respiratory: Airway is patent Respiratory effort is even, unlabored, Respiratory pattern is regular, symmetrical. GI: No signs and/or symptoms were reported involving the gastrointestinal system. : No signs and/or symptoms were reported regarding the genitourinary system. EENT: No signs and/or symptoms were reported regarding the EENT system. Derm: No signs and/or symptoms reported regarding the dermatologic system. Skin is intact, is healthy with good turgor, Skin is dry, Skin is pink, warm \T\ dry. normal, Skin temperature is warm. Musculoskeletal: No signs and/or symptoms reported regarding the musculoskeletal system. Circulation, motion, and sensation intact. Range of motion: intact in all extremities. 01:38 Reassessment: Patient appears in no apparent distress at this time. Patient and/or km8 family updated on plan of care and expected duration. Pain level reassessed. Patient is alert, oriented x 3, equal unlabored respirations, skin warm/dry/pink. 02:44 Reassessment: Patient appears in no apparent distress at this time. No changes from km8 previously documented assessment. Patient and/or family updated on plan of care and expected duration. Pain level reassessed. Patient is alert, oriented x 3, equal unlabored respirations, skin warm/dry/pink. 03:15 Reassessment: Patient appears in no apparent distress at this time. No changes from km8 previously documented assessment. Patient and/or family updated on plan of care and expected duration. Pain level reassessed. Patient is alert, oriented x 3, equal unlabored respirations, skin warm/dry/pink. 04:07 Reassessment: Patient appears in no apparent distress at this time. No changes from km8 previously documented assessment. Patient and/or family updated on plan of care and expected duration. Pain level reassessed. Patient is alert, oriented x 3, equal unlabored respirations, skin warm/dry/pink. Vital Signs: 11/28 23:58 BP 132 / 79; Pulse 66; Resp 18; Temp 97.5(TE); Pulse Ox 100% on R/A; Weight 81.65 kg; tl4 Height 5 ft. 6 in. ; 11/29 00:30 BP 128 / 82; Pulse 64; Resp 16; Pulse Ox 96% on R/A; km8 01:00 BP 111 / 72; Pulse 61; Resp 16; Pulse Ox 94% on R/A; km8 01:30 BP 109 / 71; Pulse 62; Resp 16; Pulse Ox 94% on R/A; km8 02:08 BP 119 / 75; Pulse 62; Resp 16; Pulse Ox 98% on R/A; km8 02:30 BP 117 / 78; Pulse 69; Resp 16; Pulse Ox 98% on R/A; km8 03:00 BP 104 / 70; Pulse 64; Resp 16; Pulse Ox 95% on R/A; km8 03:30 BP 101 / 73; Pulse 57; Resp 16; Pulse Ox 95% on R/A; 8 11/28 23:58 Body Mass Index 29.05 (81.65 kg, 167.64 cm) tl4 ED Course: 11/28 23:48 Patient arrived in ED. 2 11/29 00:05 Triage completed. tl4 00:08 Arm band placed on Patient placed in an exam room, on a stretcher. tl4 00:13 Farhana Olivo, RN is Primary Nurse. km8 00:20 Patient has correct armband on for positive identification. Bed in low position. Call km8 light in reach. Side rails up X 1. Adult w/ patient. Client placed on continuous cardiac and pulse oximetry monitoring. NIBP monitoring applied. Door closed. Lights dimmed. Warm blanket given. 00:20 No provider procedures requiring assistance completed. Patient maintains SpO2 km8 saturation greater than 95% on room air. 00:22 Enrique Jordan MD is Attending Physician. sp4 00:22 Inserted saline lock: 20 gauge in left antecubital area, using aseptic technique. Blood km8 collected. 00:39 XRAY Chest (1 view) In Process Unspecified. EDMS 02:18 Chest Abd Pelvis Wo Con In Process Unspecified. EDMS 02:19 CT Head Brain wo Cont In Process Unspecified. EDMS 04:08 Provided Education on: d/c teaching. km8 04:08 IV discontinued, intact, bleeding controlled, No redness/swelling at site. Pressure km8 dressing applied. Administered Medications: 00:49 Drug: Pantoprazole IVP 40 mg IVP once Route: IVP; Site: left antecubital; km8 03:25 Follow up: Response: No adverse reaction km8 00:49 Drug: Famotidine IVP 20 mg IVP once; dilute with 10 mL 0.9% NaCl; give over 2 minutes km8 Route: IVP; Site: left antecubital; 03:25 Follow up: Response: No adverse reaction km8 00:49 Drug: NS 0.9% IV 1000 ml IV at 1 bolus Per protocol; 1000 mL bolus Route: IV; Rate: 1 km8 bolus; Site: left antecubital; 03:25 Follow up: IV Status: Completed infusion; IV Intake: 1000ml km8 00:49 Drug: metoCLOPramide IVP 10 mg IVP once; over 1 to 2 minutes Route: IVP; Site: left 8 antecubital; 03:25 Follow up: Response: No adverse reaction km8 Medication: 00:20 VIS not applicable for this client. km8 Intake: 03:25 IV: 1000ml; Total: 1000ml. km8 Outcome: 04:11 Discharge ordered by . sp4 04:15 Discharged to home ambulatory, with family, km8 04:15 Condition: good 04:15 Discharge instructions given to family, Instructed on discharge instructions, follow up and referral plans. Demonstrated understanding of instructions, follow-up care, 04:15 Patient left the ED. km8 Signatures: Dispatcher [employer] Enrique Hinojosa MD MD sp4 [employer] 2 Farhana Olivo RN RN km8 Peter Salmeron RN RN tl4
[2023-11-29 04:41] VITALS: TEMP 97.5
[2023-11-29 05:02] VITALS: BP 101/73; O2SAT 95
--- NOTE | 2023-11-29 12:56 | RAD REPORT ---
EXAM DESCRIPTION: Chest Single View CLINICAL HISTORY: 28 years Male CHEST PAIN TECHNIQUE: One view of the chest. COMPARISON: No prior exams provided for comparison. FINDINGS: The lungs are clear without focal consolidation, effusion, or pneumothorax. The cardiomedi astinal silhouette and central pulmonary vasculature are normal. No acute osseous abnormalities. IMPRESSION: No acute cardiopulmonary abnormalities. Electronically signed by: Cami Longo MD 11/29/2023 12:49 AM SUPERVISOR CLEANING AND ANNEALING Due to temporary technical issues with the PACS/Fluency reporting system, reports are being signed by the in house radiologist without review as a courtesy to ensure prompt reporting. The interpreting r adiologist is fully responsible for the content of the report.
--- NOTE | 2023-11-29 13:04 | RAD REPORT ---
EXAM DESCRIPTION: Chest Abd Pelvis Wo Con RadLex: CT CHEST ABDOMEN PELVIS WITHOUT IV CONTRAST CLINICAL HISTORY: 28 years Male; CHEST PAIN; Bed Name: 16 TECHNIQUE: CT of the chest, abdomen and pelvis without contrast. All CT scans at this facility use dose modulation, iterative reconstruction, and/or weight based dosi ng when appropriate to reduce radiation dose to as low as reasonably achievable. COMPARISON: None. FINDINGS: CHEST: Lower neck/mediastinum: No mediastinal or hilar adenopathy. No mediastinal masses. Visualized thyroid gland is unremarkable. No pericardial effusion. Mild cardiomegaly. Lungs/Airways/pleura: Central airways are patent. No pneumothorax. No pleural effusion. No focal consolidation. Bilateral dependent reticular opacities, likely atelectasis. Bones and soft tissues: No acute findings. ABDOMEN/PELVIS: Abdomen: Stomach: Within normal limits Liver: No focal lesions. No intrahepatic ductal distention. Gallbladder: Nondistended Pancreas: Within normal limits Spleen: Within normal limits Right kidney: No hydronephrosis. No renal or ureteral calculi. Left kidney: No hydronephrosis. No renal or ureteral calculi. Adrenal glands: Within normal limits Vascular structures: Within normal limits (although limited evaluation on noncontrast exam). Lymph nodes: No lymphadenopathy by size criteria Pelvis: Small bowel: No significant distention. Appendix: Within normal limits Colon: No distention or acute pericolonic edema. Moderate stool burden. Peritoneum: No free intraperitoneal fluid or air. Bones: No acute bone findings. Bladder: Unremarkable. Reproductive organs: No acute findings. Note that evaluation of the bowel and solid organs is somewhat limited due to lack of intravenous and oral contrast. IMPRESSION: 1. No acute thoracic or abdominopelvic findings. 2. Mild cardiomegaly. 3. Moderate stool burden. Electronically signed by: Jerome Sheffield MD 11/29/2023 03:16 AM DOOR MAKER Due to temporary technical issues with the PACS/Fluency reporting system, reports are being signed by the in house radiologist without review as a courtesy to ensure prompt reporting. The interpreting r adiologist is fully responsible for the content of the report.
--- NOTE | 2023-11-29 13:05 | RAD REPORT ---
EXAM DESCRIPTION: Head Brain Wo Cont 11/29/2023 2:58 AM DOCUMENT MANAGEMENT SPECIALIST CLINICAL HISTORY: 28 years, Male, dizzy COMPARISON: None FINDINGS: Multiple transaxial tomograms of the brain were obtained from the base of the skull to the vertex without contrast. An individualized dose optimization technique, Automated Exposure Control, was utilized for the perfo rmed procedure. Brain parenchyma as well as the finley and white matter differentiation demonstrate to be unremarkable. Minimal punctate calcifications bilateral basal ganglia. There is no evidence for acute intraparench ymal hemorrhage. There is no midline shift and/or mass effect. No focal areas of hypodensities. Lat eral ventricles and cisterns displace normal appearance. No intra or extra axial fluid collections were seen. The calvarium demonstrate to be intact with no evidence for acute bony injuries. The visua lized portions of the paranasal sinuses and orbits demonstrate to be clear. IMPRESSION: No evidence for acute intraparenchymal hemorrhage. Unremarkable CT scan of the head without contrast. Electronically signed by: Minesh Frost MD 11/29/2023 02:59 AM DOCUMENT MANAGEMENT SPECIALIST Due to temporary technical issues with the PACS/Fluency reporting system, reports are being signed by the in house radiologist without review as a courtesy to ensure prompt reporting. The interpreting r adiologist is fully responsible for the content of the report.
--- NOTE | 2023-12-01 14:46 | EKG ---
Test Date: 2023-11-29 Test Time: 00:00:43 Rooming House Inspector: ROXANNA MEASUREMENT RESULTS: Intervals: Rate: 66 TN: 158 QRSD: 90 QT: 378 QTc: 396 [place]: P: 42 TN: 158 QRS: 27 T: 33 INTERPRETIVE STATEMENTS: Normal sinus rhythm Anterior infarct, age undetermined Abnormal ECG No previous ECG available for comparison Electronically Signed On 12-01-23 14:42:13 HOBBER by Sylvester Rodriguez
== END 2023-11-29 04:15 | disposition home or self-care (01) ==
LOC: ER 23:44
DX: R10.13 Epigastric pain (principal); R07.9 Chest pain, unspecified; R42 Dizziness and giddiness; Q90.9 Down syndrome, unspecified
CPT/HCPCS: 70450; 71045; 71250; 74176; 93005; 96361; 96374; 96375; 99285